=== PATIENT | male | born 1965 | race Caucasian/White ===

== ENCOUNTER 2025-06-05 23:40 | Emergency (ER) | payer OTHER ==
[2025-06-06] MEDS: Nitroglycerin 0.4 MG Tab.SL SL PRN (00:04)
[2025-06-06 00:05] LABS: MEAN PLATELET VOLUME 10.8 fL (9.4-12.4); NRBC ABSOLUTE 0.00 K/uL (0.00-0.02); NRBC PERCENT 0.0 /100WBC (0.0-0.2); PLATELET COUNT,PLT 242 K/uL (150-400); RED BLOOD CELL COUNT 5.49 M/uL (4.52-5.90); WHITE BLOOD CELL COUNT,WBC 8.84 K/uL (3.9-11.3)
[2025-06-06 00:49] LABS: A/G RATIO 1.0 (0.9-1.6); ALANINE AMINOTRANSFERASE,ALT 55 IU/L (14-63); ASPARTATE AMNIOTRANSFERASE,AST 28 IU/L (15-37); BILIRUBIN TOTAL 0.5 mg/dL (0.2-1.0); BLOOD UREA NITROGEN,BUN 11 mg/dL (7.0-18.0); CARBON DIOXIDE,CO2 28.9 mmol/L (21.0-32.0); CHLORIDE,CL 105 mmol/L (98-107); CREATININE 1.5 mg/dL (0.8-1.3); GLUCOSE RANDOM 146 mg/dL (74-106); POTASSIUM,K 3.7 mmol/L (3.5-5.1); PROTEIN TOTAL,TP 7.9 g/dL (6.4-8.2); SODIUM,NA 141 mmol/L (136-148)
[2025-06-06 00:52] LABS: ESTIMATED GFR 53 mL/min (>60)
[2025-06-06 00:55] LABS: EOSINOPHILS ABSOLUTE MAN 0.18 K/uL (0.00-0.45); EOSINOPHILS PERCENT MAN 2 % (0-6); LYMPHOCYTES ABSOLUTE MAN 2.56 K/uL (1.00-4.80); LYMPHOCYTES PERCENT MAN 29 % (24-44); MONOCYTES ABSOLUTE MAN 0.97 K/uL (0.00-0.80); MONOCYTES PERCENT MAN 11 % (0-8); SEG NEUTROPHILS ABSOLUTE MAN 5.13 K/uL (1.80-7.70); SEG NEUTROPHILS PERCENT MAN 58 % (41-71)
[2025-06-06] MEDS: Nitroglycerin 2% Oint 1 GM UD Packet TOP ONE (01:05)
[2025-06-06] MEDS: Enoxaparin 150 MG/1 ML Syringe SUBCUT ONE (01:11)
[2025-06-06 01:18] LABS: INR 0.95 (0.86-1.11)
[2025-06-06 03:09] VITALS: PULSE 67
[2025-06-06 04:06] VITALS: BP 147/94
== END 2025-06-06 04:39 ==
LOC: MW.ED 23:40
DX: I20.0 Unstable angina (principal); M19.90 Unspecified osteoarthritis, unspecified site
CPT/HCPCS: 36415; 71045; 80053; 83690; 84484; 85025; 85610; 85730; 93005; 96372; 96374; 99285; A9270; J1308; J1650; 93010